=== PATIENT | male | born 1995 | race Caucasian/White ===

== ENCOUNTER 2018-09-09 12:37 | Emergency (ER) | payer OTHER ==
--- NOTE | 2018-09-09 13:17 | ER Document Report ---
ED Medical Screen (RME) - General Chief Complaint: Abscess Stated Complaint: POSSIBLE ABSCESS Time Seen by Provider: 09/09/18 13:16 Notes: Patient has had a small bump in the left lower abdominal region for a couple of days. It seems to be spreading with redness towards the left inguinal region. Palpation of the lesion reveals obvious fluctuance. TRAVEL OUTSIDE OF THE [place] IN LAST 30 DAYS: No - Related Data Allergies/Adverse Reactions: No Known Allergies Allergy (Verified 09/09/18 12:37) Past Medical History - Social History Chew tobacco use (# tins/day): No Drug Abuse: None Renal/ Medical History: Denies: Hx Peritoneal Dialysis Physical Exam - Vital signs Vitals: Temp Pulse Resp BP Pulse Ox 98.4 F 67 16 119/49 L 99 09/09/18 12:51 09/09/18 12:51 09/09/18 12:51 09/09/18 12:51 09/09/18 12:51 Course - Vital Signs Vital signs: Temp Pulse Resp BP Pulse Ox 98.4 F 67 16 119/49 L 99 09/09/18 12:51 09/09/18 12:51 09/09/18 12:51 09/09/18 12:51 09/09/18 12:51
[2018-09-09] MEDS ORDERED: CEPHALEXIN 500 MG CAPSULE PO ONE (13:51)
[2018-09-09] MEDS ORDERED: HYDROCODONE/ACETAMINOPHEN 5-325 MG TABLET PO ONE (13:51)
[2018-09-09] MEDS ORDERED: SULFAMETHOXAZOLE/TRIMETHOPRIM 800-160 MG TABLET PO ONE (13:51)
--- NOTE | 2018-09-09 13:56 | ER Document Report ---
HPI - HPI Patient complains to provider of: Abscess Time Seen by Provider: 09/09/18 13:16 Onset: Other - 2 days Onset/Duration: Worse Quality of pain: Achy Pain Level: 4 Context: Patient presents complaining of abscess to the left hip that has increased in tenderness and redness. Patient denies any fever. Associated Symptoms: Other - Abscess Exacerbated by: Denies Relieved by: Denies Similar symptoms previously: No Recently seen / treated by doctor: No - ROS ROS below otherwise negative: Yes Systems Reviewed and Negative: Yes All other systems reviewed and negative - CONSTITUTIONAL Constitutional: DENIES: Fever, Chills - NEURO Neurology: DENIES: Weakness - DERM Skin Color: Erythema Notes: Abscess Past Medical History - General Information source: Patient - Social History Smoking Status: Current Every Day Smoker Chew tobacco use (# tins/day): No Smoking Education Provided: Yes Drug Abuse: None Occupation: Active duty Lives with: Spouse/Significant other Family History: Reviewed & Not Pertinent Patient has suicidal ideation: No Patient has homicidal ideation: No - Medical History Medical History: Negative Renal/ Medical History: Denies: Hx Peritoneal Dialysis Surgical Hx: Negative Vertical Provider Document - CONSTITUTIONAL Agree With Documented VS: Yes Exam Limitations: No Limitations General Appearance: WD/WN, No Apparent Distress - INFECTION CONTROL TRAVEL OUTSIDE OF THE [place] IN LAST 30 DAYS: No - HEENT HEENT: Atraumatic, Normocephalic - NECK Neck: Normal Inspection - RESPIRATORY Respiratory: Breath Sounds Normal, No Respiratory Distress - CARDIOVASCULAR Cardiovascular: Regular Rate, Regular Rhythm - BACK Back: Normal Inspection - MUSCULOSKELETAL/EXTREMETIES Musculoskeletal/Extremeties: MAEW - NEURO Level of Consciousness: Awake, Alert, Appropriate Motor/Sensory: No Motor Deficit - DERM Integumentary: Warm, Dry, Rash - Scaling rash to bilateral feet and web spacing between toes, Abscess - Abscess to left hip area with erythema extending to left groin Course - Re-evaluation Re-evalutation: 09/09/18 13:52 Patient with abscess concerning for developing cellulitis. - Vital Signs Vital signs: Temp Pulse Resp BP Pulse Ox 98.4 F 67 16 119/49 L 99 09/09/18 12:51 09/09/18 12:51 09/09/18 12:51 09/09/18 12:51 09/09/18 12:51 Procedures - Incision and Drainage Left Hip Type: Simple Anesthetic type: 1% Lidocaine Blade size: 11 I&D procedure: Betadine prep applied Incision Method: Incision made by scalpel Amount/type of drainage: Small amount of bloody drainage Discharge - Discharge Clinical Impression: Abscess, Encounter for incision and drainage procedure Cellulitis Qualifiers: Site of cellulitis: unspecified site Qualified Code(s): L03.90 - Cellulitis, unspecified Tinea pedis Qualifiers: Laterality: bilateral Qualified Code(s): B35.3 - Tinea pedis Condition: Stable Disposition: HOME, SELF-CARE Instructions: Abscess ([facility]), Cephalexin ([facility]), Post Incision and Drainage, Trimethoprim-Sulfa ([facility]) Additional Instructions: Return immediately for any new or worsening symptoms Followup with your primary care provider, call tomorrow to make a followup appointment Keep wound covered as it continues to heal Prescriptions: Cephalexin Monohydrate [Keflex 500 mg Capsule] 500 mg PO Q6H 5 Days capsule Ketoconazole [Nizoral] 1 applic TP DAILY #30 cream.gm. Sulfamethoxazole/Trimethoprim [Bactrim Ds Tablet] 1 each PO BID #20 tablet Forms: Smoking Cessation Education Referrals: [facility] [Provider Group] - Follow up as needed
[2018-09-09 14:30] VITALS: BP 120/58
== END 2018-09-09 14:25 | disposition home or self-care (01) ==
LOC: ER 12:37
DX: L02.416 Cutaneous abscess of left lower limb (principal); L03.90 Cellulitis, unspecified; B35.3 Tinea pedis; F17.200 Nicotine dependence, unspecified, uncomplicated
CPT/HCPCS: 99283